=== PATIENT | male | born 1940 | race Two or more races ===

== ENCOUNTER 2023-03-20 06:52 | Inpatient (IN) | payer MEDICARE, MEDICAID ==
[~2023-03-20] VITALS: Ht 167.6 cm; Wt 95.8 kg
[2023-03-20] MEDS ORDERED: metroNIDAZOLE 500MG/100ML 100 ML IV ONE (07:00)
[2023-03-20] MEDS ORDERED: PIPERACILLIN-TAZOB 3.375GM 100 ML IV ONE (07:00)
[2023-03-20] MEDS ORDERED: PANTOPRAZOLE 40 MG/10 ML VIAL INJ IV ONE (07:00)
[2023-03-20] MEDS ORDERED: SODIUM CHLORIDE 0.9% 1,000 ML IV ONE ×4 (07:00→09:30)
[2023-03-20 07:07] VITALS: PULSE 84; RESP 25; O2SAT 96
[2023-03-20 07:21] LABS: Basophils # (auto) 0.1 10 ^3/uL (0-0.2); Eosinophils # (auto) 0 10 ^3/uL (0-0.8); Eosinophils % (auto) 0.2 % (0.0-7.0); Hematocrit 27.6 % (41.0-53.0); Hemoglobin 9.1 g/dL (13.5-17.5); Lymphocytes # (auto) 1.3 10 ^3/uL (0.4-5.4); Lymphocytes % (auto) 13.9 % (10.0-50.0); Mean Corpuscular Hemoglobin 28.4 pg (28.0-32.0); Mean Corpuscular Hgb Conc. 32.8 g/dL (32.0-36.0); Mean Corpuscular Volume 86.6 fL (80.0-100.0); Monocytes # (auto) 1.7 10 ^3/uL (0-1.3); Neutrophils # (auto) 6.3 10 ^3/uL (1.6-8.6); Neutrophils % (auto) 66.5 % (37.0-80.0); Nucleated Red Blood Cells % 0.2 %; Red Blood Cells 3.19 10^6/uL (4.5-5.90); Red Cell Distribution Width 20.6 % (11.8-14.3); White Blood Cell 9.4 10^3/uL (4.4-10.8)
[2023-03-20 07:24] LABS: Monocytes % (auto) 18.4 % (0.0-12.0)
[2023-03-20 07:30] VITALS: PULSE 84; RESP 20; O2SAT 97
[2023-03-20 07:36] LABS: INR 1.15 (0.9-1.15); Partial Thromboplastin Time 31.9 SEC (24.5-34.5)
[2023-03-20 07:39] LABS: Alanine Aminotransferase 24 U/L (7-40); Alkaline Phosphatase 56 U/L (46-116); Anion Gap 8 (5-15); Aspartate Aminotransferase 23 U/L (13-40); BUN/Creatinine Ratio 9.8 (10.0-20.0); Blood Urea Nitrogen 17 mg/dL (9-23); Calcium 7.4 mg/dL (8.7-10.4); Carbon Dioxide 26 mmol/L (20-30); Chloride 103 mmol/L (98-107); Glucose 109 mg/dL (74-106); Potassium 3.1 mmol/L (3.5-5.1); Sodium 137 mmol/L (136-145)
[2023-03-20 07:40] LABS: Bilirubin, Total 0.7 mg/dL (0.2-1.0); Total Protein 4.8 g/dL (5.7-8.2)
[2023-03-20] MEDS ORDERED: FUROSEMIDE 40 MG/4 ML VIAL IV ONE (09:45)
[2023-03-20] MEDS ORDERED: NOREPINEPHRINE 8 MG/250ML KIT 250 ML IV SCH (09:45)
[2023-03-20] MEDS: NOREPINEPHRINE 8 MG/250ML KIT 250 ML IV SCH ×2 (10:22→22:27)
[2023-03-20 12:43] LABS: Urine Bacteria FEW /hpf (None Seen); Urine Blood 3+ /uL (Negative); Urine Clarity Clear (Clear); Urine Color Yellow (Yellow); Urine Protein, UAD Negative (Negative); Urine Specific Gravity 1.011 (1.001-1.035); Urine Urobilinogen Normal (Negative); Urine WBC 5 /hpf (0 - 3); Urine pH 5.5 (5.0-8.0)
[2023-03-20] MEDS ORDERED: DOCUSATE SOD 100 MG CAP PO PRN (13:45)
[2023-03-20] MEDS: PIPERACILLIN-TAZOB 3.375GM 100 ML IV SCH ×2 (14:30→22:26)
[2023-03-20 14:48] LABS: INR 1.12 (0.9-1.15); Prothrombin Time 11.7 sec (9.3-11.8)
[2023-03-20] MEDS: POTASSIUM CHL 20MEQ/100ML 100 ML IV SCH ×2 (15:39→17:23)
[2023-03-20] MEDS ORDERED: LIDOCAINE 1% (LOCAL ANESTH.) PF 5ml SDV ID ONE (18:15)
[2023-03-20] MEDS: FUROSEMIDE 20 MG/2 ML VIAL IV SCH (18:22)
[2023-03-20 19:30] VITALS: PULSE 109; RESP 18; O2SAT 99
[2023-03-20] MEDS: SODIUM CHLOR 0.9% PF (SALINE LOCK) 10ML VIAL/SYR IV SCH (22:26)
[2023-03-21] VITALS (60 sets, daily range): BP systolic 84–162; BP diastolic 51–82; PULSE 80–117; RESP 9–26; TEMP 97.9–99.1; O2SAT 90–100
[2023-03-21] MEDS: FUROSEMIDE 20 MG/2 ML VIAL IV SCH ×2 (07:15→18:16)
[2023-03-21] MEDS: PIPERACILLIN-TAZOB 3.375GM 100 ML IV SCH ×3 (07:15→22:16)
[2023-03-21 08:46] LABS: Basophils # (auto) 0.1 10 ^3/uL (0-0.2); Basophils % (auto) 0.9 % (0.0-2.0); Eosinophils # (auto) 0.1 10 ^3/uL (0-0.8); Eosinophils % (auto) 1.1 % (0.0-7.0); Hematocrit 31.5 % (41.0-53.0); Hemoglobin 10.1 g/dL (13.5-17.5); Lymphocytes # (auto) 1.1 10 ^3/uL (0.4-5.4); Lymphocytes % (auto) 13.3 % (10.0-50.0); Mean Corpuscular Hemoglobin 27.8 pg (28.0-32.0); Mean Corpuscular Hgb Conc. 32.1 g/dL (32.0-36.0); Mean Corpuscular Volume 86.7 fL (80.0-100.0); Monocytes % (auto) 12.8 % (0.0-12.0); Neutrophils # (auto) 5.7 10 ^3/uL (1.6-8.6); Neutrophils % (auto) 71.9 % (37.0-80.0); Nucleated Red Blood Cells % 0.3 %; Red Blood Cells 3.64 10^6/uL (4.5-5.90); White Blood Cell 7.9 10^3/uL (4.4-10.8)
[2023-03-21 08:47] LABS: Alanine Aminotransferase 28 U/L (7-40); Albumin 3.2 g/dL (3.2-4.8); Alkaline Phosphatase 54 U/L (46-116); Anion Gap 8 (5-15); Aspartate Aminotransferase 35 U/L (13-40); BUN/Creatinine Ratio 9.3 (10.0-20.0); Bilirubin, Total 0.8 mg/dL (0.2-1.0); Blood Urea Nitrogen 10 mg/dL (9-23); Calcium 7.6 mg/dL (8.7-10.4); Carbon Dioxide 26 mmol/L (20-30); Chloride 105 mmol/L (98-107); Glucose 131 mg/dL (74-106); Sodium 139 mmol/L (136-145)
[2023-03-21 08:48] LABS: Red Cell Distribution Width 20.1 % (11.8-14.3); Total Protein 5.5 g/dL (5.7-8.2)
[2023-03-21 09:08] LABS: Potassium 2.8 mmol/L (3.5-5.1)
[2023-03-21] MEDS: PANTOPRAZOLE 40 MG/10 ML VIAL INJ IV SCH (10:44)
[2023-03-21] MEDS: SODIUM CHLOR 0.9% PF (SALINE LOCK) 10ML VIAL/SYR IV SCH ×2 (10:45→22:16)
[2023-03-21] MEDS: NOREPINEPHRINE 8 MG/250ML KIT 250 ML IV SCH (10:46)
[2023-03-21] MEDS: POTASSIUM CHL 20MEQ/100ML 100 ML IV SCH ×4 (10:55→18:17)
[2023-03-21] MEDS ORDERED: cefTRIAXone 1GM/50ML D5W 50 ML IV ONE (12:15)
[2023-03-21] MEDS: MAGNESIUM SULFATE 1GM/100ML 100 ML IV SCH ×2 (12:59→15:20)
[2023-03-21] MEDS: LOPERAMIDE HCL 2 MG CAP/TAB PO PRN (16:39)
[2023-03-22] VITALS (76 sets, daily range): BP systolic 78–127; BP diastolic 32–80; PULSE 82–115; RESP 8–32; TEMP 97.9–98.5; O2SAT 91–99
[2023-03-22 04:17] LABS: Basophils # (auto) 0.1 10 ^3/uL (0-0.2); Basophils % (auto) 1.2 % (0.0-2.0); Eosinophils # (auto) 0.2 10 ^3/uL (0-0.8); Eosinophils % (auto) 2.7 % (0.0-7.0); Hemoglobin 9.8 g/dL (13.5-17.5); Lymphocytes # (auto) 1.1 10 ^3/uL (0.4-5.4); Lymphocytes % (auto) 14.6 % (10.0-50.0); Mean Corpuscular Hgb Conc. 32.9 g/dL (32.0-36.0); Mean Corpuscular Volume 85.1 fL (80.0-100.0); Monocytes # (auto) 0.9 10 ^3/uL (0-1.3); Monocytes % (auto) 11.2 % (0.0-12.0); Neutrophils # (auto) 5.5 10 ^3/uL (1.6-8.6); Neutrophils % (auto) 70.3 % (37.0-80.0); Nucleated Red Blood Cells % 0.1 %; Red Blood Cells 3.52 10^6/uL (4.5-5.90); Red Cell Distribution Width 19.1 % (11.8-14.3); White Blood Cell 7.8 10^3/uL (4.4-10.8)
[2023-03-22 04:32] LABS: Alanine Aminotransferase 28 U/L (7-40); Albumin 3.1 g/dL (3.2-4.8); Alkaline Phosphatase 53 U/L (46-116); Anion Gap 7 (5-15); Aspartate Aminotransferase 29 U/L (13-40); BUN/Creatinine Ratio 9.3 (10.0-20.0); Blood Urea Nitrogen 9 mg/dL (9-23); Calcium 7.8 mg/dL (8.7-10.4); Carbon Dioxide 25 mmol/L (20-30); Chloride 105 mmol/L (98-107); Glucose 111 mg/dL (74-106); Potassium 3.2 mmol/L (3.5-5.1); Sodium 137 mmol/L (136-145)
[2023-03-22 04:33] LABS: Bilirubin, Total 0.8 mg/dL (0.2-1.0); Total Protein 5.4 g/dL (5.7-8.2)
[2023-03-22] MEDS: PIPERACILLIN-TAZOB 3.375GM 100 ML IV SCH ×2 (06:30→13:36)
[2023-03-22] MEDS: LOPERAMIDE HCL 2 MG CAP/TAB PO PRN (06:30)
[2023-03-22] MEDS: FUROSEMIDE 20 MG/2 ML VIAL IV SCH ×2 (06:31→18:16)
[2023-03-22] MEDS: ONDANSETRON HCL 4 MG/2 ML VIAL IV PRN (08:22)
[2023-03-22] MEDS: PANTOPRAZOLE 40 MG/10 ML VIAL INJ IV SCH (10:13)
[2023-03-22] MEDS: cefTRIAXone 1GM/50ML D5W 50 ML IV SCH (10:14)
[2023-03-22] MEDS: SODIUM CHLOR 0.9% PF (SALINE LOCK) 10ML VIAL/SYR IV SCH ×2 (10:15→21:39)
[2023-03-22] MEDS ORDERED: POTASSIUM CHL 20 Meq TABLET PO ONE (15:30)
[2023-03-22] MEDS: VANCOMYCIN HCL 125MG/5ML ORAL SOL PO SCH ×2 (18:17→21:38)
[2023-03-22] MEDS: NOREPINEPHRINE 8 MG/250ML KIT 250 ML IV SCH (19:53)
[2023-03-22] MEDS: metroNIDAZOLE 500MG/100ML 100 ML IV SCH (21:29)
[2023-03-22] MEDS: DOXYCYCLINE 100MG/250ML 250 ML IV SCH (22:47)
[2023-03-23] VITALS (76 sets, daily range): BP systolic 88–131; BP diastolic 47–80; PULSE 80–115; RESP 8–32; TEMP 97.6–98.7; O2SAT 88–98
[2023-03-23 04:48] LABS: Basophils # (auto) 0.1 10 ^3/uL (0-0.2); Basophils % (auto) 1.1 % (0.0-2.0); Eosinophils # (auto) 0.2 10 ^3/uL (0-0.8); Eosinophils % (auto) 4.5 % (0.0-7.0); Hematocrit 29.3 % (41.0-53.0); Hemoglobin 9.6 g/dL (13.5-17.5); Lymphocytes % (auto) 19.1 % (10.0-50.0); Mean Corpuscular Hemoglobin 27.8 pg (28.0-32.0); Mean Corpuscular Hgb Conc. 32.7 g/dL (32.0-36.0); Mean Corpuscular Volume 85.1 fL (80.0-100.0); Monocytes # (auto) 0.7 10 ^3/uL (0-1.3); Neutrophils # (auto) 3.1 10 ^3/uL (1.6-8.6); Neutrophils % (auto) 61.3 % (37.0-80.0); Nucleated Red Blood Cells % 0.2 %; Red Blood Cells 3.45 10^6/uL (4.5-5.90); Red Cell Distribution Width 19.5 % (11.8-14.3)
[2023-03-23 04:54] LABS: Alanine Aminotransferase 23 U/L (7-40); Albumin 3.1 g/dL (3.2-4.8); Alkaline Phosphatase 51 U/L (46-116); Anion Gap 5 (5-15); Aspartate Aminotransferase 24 U/L (13-40); BUN/Creatinine Ratio 8.4 (10.0-20.0); Bilirubin, Total 0.5 mg/dL (0.2-1.0); Blood Urea Nitrogen 8 mg/dL (9-23); Carbon Dioxide 28 mmol/L (20-30); Chloride 103 mmol/L (98-107); Glucose 123 mg/dL (74-106); Magnesium 1.6 mg/dL (1.6-2.6); Potassium 3.2 mmol/L (3.5-5.1); Sodium 136 mmol/L (136-145); Total Protein 5.4 g/dL (5.7-8.2)
[2023-03-23] MEDS: metroNIDAZOLE 500MG/100ML 100 ML IV SCH ×3 (05:39→21:45)
[2023-03-23] MEDS: VANCOMYCIN HCL 125MG/5ML ORAL SOL PO SCH ×4 (05:39→21:45)
[2023-03-23] MEDS: FUROSEMIDE 20 MG/2 ML VIAL IV SCH ×2 (06:27→17:11)
[2023-03-23] MEDS: cefTRIAXone 1GM/50ML D5W 50 ML IV SCH (07:43)
[2023-03-23] MEDS: PANTOPRAZOLE 40 MG/10 ML VIAL INJ IV SCH (09:03)
[2023-03-23] MEDS: MAGNESIUM SULFATE 1GM/100ML 100 ML IV SCH ×2 (09:03→10:20)
[2023-03-23] MEDS: SODIUM CHLOR 0.9% PF (SALINE LOCK) 10ML VIAL/SYR IV SCH ×2 (09:04→21:45)
[2023-03-23] MEDS: DOXYCYCLINE 100MG/250ML 250 ML IV SCH ×2 (09:06→21:45)
[2023-03-23] MEDS ORDERED: POTASSIUM CHL 20 Meq TABLET PO SCH (10:00)
[2023-03-23] MEDS: MIDODRINE HCL 10 MG TAB PO SCH ×2 (11:33→17:11)
[2023-03-24] VITALS (24 sets, daily range): BP systolic 92–141; BP diastolic 45–84; PULSE 73–87; RESP 10–25; TEMP 97.5–98.6; O2SAT 88–99
[2023-03-24] MEDS: VANCOMYCIN HCL 125MG/5ML ORAL SOL PO SCH ×4 (06:22→22:15)
[2023-03-24] MEDS: MIDODRINE HCL 10 MG TAB PO SCH ×3 (06:22→18:00)
[2023-03-24] MEDS: FUROSEMIDE 20 MG/2 ML VIAL IV SCH ×2 (06:25→17:59)
[2023-03-24] MEDS: metroNIDAZOLE 500MG/100ML 100 ML IV SCH ×3 (06:25→22:14)
[2023-03-24 06:54] LABS: Basophils # (auto) 0 10 ^3/uL (0-0.2); Basophils % (auto) 0.4 % (0.0-2.0); Eosinophils # (auto) 0.2 10 ^3/uL (0-0.8); Eosinophils % (auto) 3.8 % (0.0-7.0); Hematocrit 29.2 % (41.0-53.0); Hemoglobin 9.6 g/dL (13.5-17.5); Lymphocytes # (auto) 0.9 10 ^3/uL (0.4-5.4); Lymphocytes % (auto) 21.9 % (10.0-50.0); Mean Corpuscular Hgb Conc. 32.7 g/dL (32.0-36.0); Mean Corpuscular Volume 85.5 fL (80.0-100.0); Monocytes # (auto) 0.6 10 ^3/uL (0-1.3); Monocytes % (auto) 16.1 % (0.0-12.0); Neutrophils # (auto) 2.3 10 ^3/uL (1.6-8.6); Neutrophils % (auto) 57.8 % (37.0-80.0); Nucleated Red Blood Cells % 0.3 %; Red Blood Cells 3.42 10^6/uL (4.5-5.90); Red Cell Distribution Width 19.7 % (11.8-14.3)
[2023-03-24 06:59] LABS: Chloride 104 mmol/L (98-107); Potassium 3.1 mmol/L (3.5-5.1); Sodium 136 mmol/L (136-145)
[2023-03-24 07:00] LABS: Anion Gap 5 (5-15); Carbon Dioxide 27 mmol/L (20-30)
[2023-03-24 07:01] LABS: Calcium 8.1 mg/dL (8.7-10.4)
[2023-03-24 07:05] LABS: Glucose 97 mg/dL (74-106)
[2023-03-24 07:06] LABS: BUN/Creatinine Ratio 7.9 (10.0-20.0); Blood Urea Nitrogen 7 mg/dL (9-23); Magnesium 1.9 mg/dL (1.6-2.6)
[2023-03-24] MEDS: PANTOPRAZOLE 40 MG/10 ML VIAL INJ IV SCH (10:05)
[2023-03-24] MEDS: cefTRIAXone 1GM/50ML D5W 50 ML IV SCH (10:05)
[2023-03-24] MEDS: SODIUM CHLOR 0.9% PF (SALINE LOCK) 10ML VIAL/SYR IV SCH ×2 (10:06→22:14)
[2023-03-24] MEDS: POTASSIUM CHL 20 Meq TABLET PO SCH (10:09)
[2023-03-24] MEDS: NOREPINEPHRINE 8 MG/250ML KIT 250 ML IV SCH (10:15)
[2023-03-24] MEDS: DOXYCYCLINE 100MG/250ML 250 ML IV SCH ×2 (11:13→22:14)
[2023-03-24] MEDS: MAGNESIUM SULFATE 1GM/100ML 100 ML IV SCH ×2 (16:21→17:59)
[2023-03-24] MEDS: POTASSIUM CHL 20MEQ/100ML 100 ML IV SCH ×2 (16:21→18:21)
[2023-03-25] VITALS (7 sets, daily range): BP systolic 105–111; BP diastolic 60–65; PULSE 82–92; RESP 17–94; TEMP 97.2–98.3; O2SAT 94–95
[2023-03-25] MEDS: metroNIDAZOLE 500MG/100ML 100 ML IV SCH ×3 (05:52→22:28)
[2023-03-25] MEDS: MIDODRINE HCL 10 MG TAB PO SCH ×3 (05:53→18:44)
[2023-03-25] MEDS: FUROSEMIDE 20 MG/2 ML VIAL IV SCH ×2 (05:53→18:40)
[2023-03-25] MEDS: VANCOMYCIN HCL 125MG/5ML ORAL SOL PO SCH ×4 (05:53→22:28)
[2023-03-25] MEDS: cefTRIAXone 1GM/50ML D5W 50 ML IV SCH (09:40)
[2023-03-25] MEDS: POTASSIUM CHL 20 Meq TABLET PO SCH (09:40)
[2023-03-25] MEDS: PANTOPRAZOLE 40 MG/10 ML VIAL INJ IV SCH (09:40)
[2023-03-25] MEDS: SODIUM CHLOR 0.9% PF (SALINE LOCK) 10ML VIAL/SYR IV SCH ×2 (09:40→22:27)
[2023-03-25] MEDS: DOXYCYCLINE 100MG/250ML 250 ML IV SCH (11:11)
[2023-03-25] MEDS: DOXYCYCLINE 100 MG TAB/CAP PO SCH (22:27)
[2023-03-25] MEDS: ONDANSETRON HCL 4 MG/2 ML VIAL IV PRN (23:43)
[2023-03-26] VITALS (7 sets, daily range): BP systolic 104–120; BP diastolic 62–72; PULSE 84–98; RESP 16–19; TEMP 97.7–98.6; O2SAT 93–95
[2023-03-26] MEDS: MIDODRINE HCL 10 MG TAB PO SCH ×3 (06:20→18:14)
[2023-03-26] MEDS: FUROSEMIDE 20 MG/2 ML VIAL IV SCH ×2 (06:21→18:14)
[2023-03-26] MEDS: metroNIDAZOLE 500MG/100ML 100 ML IV SCH ×3 (06:21→21:16)
[2023-03-26] MEDS: VANCOMYCIN HCL 125MG/5ML ORAL SOL PO SCH ×4 (06:22→21:16)
[2023-03-26] MEDS: POTASSIUM CHL 20 Meq TABLET PO SCH (08:39)
[2023-03-26] MEDS: ONDANSETRON HCL 4 MG/2 ML VIAL IV PRN (08:39)
[2023-03-26] MEDS: cefTRIAXone 1GM/50ML D5W 50 ML IV SCH (08:39)
[2023-03-26] MEDS: LOPERAMIDE HCL 2 MG CAP/TAB PO PRN (08:46)
[2023-03-26] MEDS: PANTOPRAZOLE 40 MG/10 ML VIAL INJ IV SCH (09:50)
[2023-03-26] MEDS: DOXYCYCLINE 100 MG TAB/CAP PO SCH ×2 (09:50→21:14)
[2023-03-26] MEDS: SODIUM CHLOR 0.9% PF (SALINE LOCK) 10ML VIAL/SYR IV SCH ×2 (09:50→21:15)
[2023-03-27] VITALS (7 sets, daily range): BP systolic 100–141; BP diastolic 54–80; PULSE 90–104; RESP 17–20; TEMP 97.4–98.8; O2SAT 94–97
[2023-03-27] MEDS: metroNIDAZOLE 500MG/100ML 100 ML IV SCH ×2 (06:04→13:14)
[2023-03-27] MEDS: FUROSEMIDE 20 MG/2 ML VIAL IV SCH ×2 (06:04→16:39)
[2023-03-27] MEDS: MIDODRINE HCL 10 MG TAB PO SCH ×3 (06:04→18:28)
[2023-03-27] MEDS: VANCOMYCIN HCL 125MG/5ML ORAL SOL PO SCH ×4 (06:05→22:28)
[2023-03-27] MEDS: cefTRIAXone 1GM/50ML D5W 50 ML IV SCH (08:52)
[2023-03-27] MEDS: ONDANSETRON HCL 4 MG/2 ML VIAL IV PRN ×2 (08:52→13:12)
[2023-03-27] MEDS: DOXYCYCLINE 100 MG TAB/CAP PO SCH (08:53)
[2023-03-27] MEDS: PANTOPRAZOLE 40 MG/10 ML VIAL INJ IV SCH (08:53)
[2023-03-27] MEDS: SODIUM CHLOR 0.9% PF (SALINE LOCK) 10ML VIAL/SYR IV SCH ×2 (08:53→22:27)
[2023-03-27] MEDS: POTASSIUM CHL 20 Meq TABLET PO SCH (08:53)
[2023-03-27] MEDS ORDERED: METOPROLOL TARTRATE 50 MG TAB PO ONE (10:00)
[2023-03-27] MEDS: LOPERAMIDE HCL 2 MG CAP/TAB PO PRN (10:12)
[2023-03-27] MEDS ORDERED: SODIUM CHLORIDE 0.9% 500 ML IV ONE (10:30)
[2023-03-27] MEDS ORDERED: TPN PER PHARMACY 0 ML IV SCH (15:00)
[2023-03-27] MEDS ORDERED: ENOXAPARIN SOD 100 MG/1 ML SYRINGE SC ONE (16:00)
[2023-03-27 17:15] LABS: Alanine Aminotransferase 12 U/L (7-40); Alkaline Phosphatase 69 U/L (46-116); Anion Gap 7 (5-15); Aspartate Aminotransferase 13 U/L (13-40); BUN/Creatinine Ratio 8.9 (10.0-20.0); Blood Urea Nitrogen 12 mg/dL (9-23); Calcium 8.2 mg/dL (8.7-10.4); Carbon Dioxide 23 mmol/L (20-30); Chloride 109 mmol/L (98-107); Glucose 123 mg/dL (74-106); Magnesium 1.3 mg/dL (1.6-2.6); Potassium 3.7 mmol/L (3.5-5.1); Sodium 139 mmol/L (136-145)
[2023-03-27 17:16] LABS: Albumin 3.1 g/dL (3.2-4.8); Bilirubin, Total 0.5 mg/dL (0.2-1.0); Phosphorus 2.3 mg/dL (2.4-5.1); Total Protein 5.9 g/dL (5.7-8.2)
[2023-03-27] MEDS: MAGNESIUM SULFATE 1GM/100ML 100 ML IV SCH ×2 (18:28→19:28)
[2023-03-27] MEDS ORDERED: AMINO ACID INFUSION IN D10W 1,000 ML IV NR (20:00)
[2023-03-27] MEDS ORDERED: POTASSIUM PHOSPHATE 22 MEQ in SODIUM CHL 0.9% 100 ML IV ONE (20:00)
[2023-03-27] MEDS: InsuLIN REG 1unit/0.01ml Soln (100units/ml) SC SCH (22:57)
[2023-03-27] MEDS: ACCU-CHEK COMFORT CURVE STRIP VI SCH (22:57)
[2023-03-28] VITALS (7 sets, daily range): BP systolic 102–128; BP diastolic 59–75; PULSE 85–97; RESP 14–20; TEMP 97.8–98.6; O2SAT 94–97
[2023-03-28] MEDS ORDERED: DEXTROSE (50%) 50ML SYRG IV SCH
[2023-03-28] MEDS: ACCU-CHEK COMFORT CURVE STRIP VI SCH ×3 (06:33→16:53)
[2023-03-28] MEDS: VANCOMYCIN HCL 125MG/5ML ORAL SOL PO SCH ×4 (06:36→20:58)
[2023-03-28] MEDS: MIDODRINE HCL 10 MG TAB PO SCH ×3 (06:36→16:53)
[2023-03-28] MEDS: FUROSEMIDE 20 MG/2 ML VIAL IV SCH ×2 (06:36→16:52)
[2023-03-28] MEDS: metroNIDAZOLE 500MG/100ML 100 ML IV SCH ×4 (06:37→20:57)
[2023-03-28] MEDS: InsuLIN REG 1unit/0.01ml Soln (100units/ml) SC SCH ×3 (06:53→16:53)
[2023-03-28 06:54] LABS: Alanine Aminotransferase 10 U/L (7-40); Alkaline Phosphatase 66 U/L (46-116); Anion Gap 8 (5-15); Aspartate Aminotransferase 11 U/L (13-40); BUN/Creatinine Ratio 9.7 (10.0-20.0); Bilirubin, Total 0.5 mg/dL (0.2-1.0); Blood Urea Nitrogen 12 mg/dL (9-23); Calcium 8.3 mg/dL (8.7-10.4); Carbon Dioxide 22 mmol/L (20-30); Chloride 107 mmol/L (98-107); Glucose 134 mg/dL (74-106); Magnesium 1.8 mg/dL (1.6-2.6); Phosphorus 2.8 mg/dL (2.4-5.1); Potassium 3.3 mmol/L (3.5-5.1); Sodium 137 mmol/L (136-145)
[2023-03-28 06:55] LABS: Total Protein 5.8 g/dL (5.7-8.2)
[2023-03-28] MEDS: POTASSIUM CHL 20 Meq TABLET PO SCH (08:53)
[2023-03-28] MEDS: ENOXAPARIN SOD 100 MG/1 ML SYRINGE SC SCH ×2 (08:54→20:58)
[2023-03-28] MEDS: PANTOPRAZOLE 40 MG/10 ML VIAL INJ IV SCH (08:54)
[2023-03-28] MEDS: cefTRIAXone 1GM/50ML D5W 50 ML IV SCH (08:54)
[2023-03-28] MEDS: SODIUM CHLOR 0.9% PF (SALINE LOCK) 10ML VIAL/SYR IV SCH ×2 (09:07→20:57)
[2023-03-28] MEDS ORDERED: POTASSIUM EFFERVESENT TAB 25 MEQ GT ONE (10:45)
[2023-03-28] MEDS ORDERED: TPN PER PHARMACY IV NR ×9 (20:00)
[2023-03-29] VITALS (7 sets, daily range): BP systolic 100–111; BP diastolic 59–66; PULSE 82–102; RESP 14–20; TEMP 98.2–99.1; O2SAT 93–97
[2023-03-29] MEDS: ACCU-CHEK COMFORT CURVE STRIP VI SCH ×5 (00:30→23:51)
[2023-03-29] MEDS: InsuLIN REG 1unit/0.01ml Soln (100units/ml) SC SCH ×5 (00:30→23:50)
[2023-03-29] MEDS: metroNIDAZOLE 500MG/100ML 100 ML IV SCH ×3 (05:44→21:11)
[2023-03-29 06:31] LABS: Basophils # (auto) 0.1 10 ^3/uL (0-0.2); Basophils % (auto) 0.6 % (0.0-2.0); Eosinophils # (auto) 0 10 ^3/uL (0-0.8); Eosinophils % (auto) 0.3 % (0.0-7.0); Hematocrit 29.7 % (41.0-53.0); Hemoglobin 9.5 g/dL (13.5-17.5); Lymphocytes % (auto) 8.9 % (10.0-50.0); Mean Corpuscular Hemoglobin 27.5 pg (28.0-32.0); Mean Corpuscular Hgb Conc. 32.1 g/dL (32.0-36.0); Mean Corpuscular Volume 85.8 fL (80.0-100.0); Monocytes # (auto) 1.5 10 ^3/uL (0-1.3); Monocytes % (auto) 13.2 % (0.0-12.0); Neutrophils # (auto) 8.5 10 ^3/uL (1.6-8.6); Nucleated Red Blood Cells % 0.1 %; Red Blood Cells 3.46 10^6/uL (4.5-5.90)
[2023-03-29 06:33] LABS: Red Cell Distribution Width 20.2 % (11.8-14.3)
[2023-03-29] MEDS: FUROSEMIDE 20 MG/2 ML VIAL IV SCH ×2 (06:34→17:32)
[2023-03-29] MEDS: MIDODRINE HCL 10 MG TAB PO SCH ×3 (06:34→17:37)
[2023-03-29] MEDS: VANCOMYCIN HCL 125MG/5ML ORAL SOL PO SCH ×4 (06:37→21:04)
[2023-03-29 06:53] LABS: Albumin 2.9 g/dL (3.2-4.8); Alkaline Phosphatase 61 U/L (46-116); Anion Gap 7 (5-15); Aspartate Aminotransferase 10 U/L (13-40); BUN/Creatinine Ratio 15.8 (10.0-20.0); Blood Urea Nitrogen 16 mg/dL (9-23); Calcium 8.2 mg/dL (8.7-10.4); Carbon Dioxide 24 mmol/L (20-30); Chloride 105 mmol/L (98-107); Glucose 130 mg/dL (74-106); Magnesium 1.5 mg/dL (1.6-2.6); Potassium 3.3 mmol/L (3.5-5.1); Sodium 136 mmol/L (136-145)
[2023-03-29 06:54] LABS: Alanine Aminotransferase < 9 U/L (7-40); Bilirubin, Total 0.8 mg/dL (0.2-1.0); Phosphorus 2.5 mg/dL (2.4-5.1); Total Protein 5.5 g/dL (5.7-8.2)
[2023-03-29] MEDS: POTASSIUM CHL 20 Meq TABLET PO SCH (09:09)
[2023-03-29] MEDS: ENOXAPARIN SOD 100 MG/1 ML SYRINGE SC SCH ×2 (09:10→21:04)
[2023-03-29] MEDS: PANTOPRAZOLE 40 MG/10 ML VIAL INJ IV SCH (09:10)
[2023-03-29] MEDS: cefTRIAXone 1GM/50ML D5W 50 ML IV SCH (09:10)
[2023-03-29] MEDS: SODIUM CHLOR 0.9% PF (SALINE LOCK) 10ML VIAL/SYR IV SCH ×2 (09:10→21:03)
[2023-03-29] MEDS ORDERED: POTASSIUM PHOSPHATE 26.4 MEQ in SODIUM CHL 0.9% 100 ML IV ONE (12:00)
[2023-03-29] MEDS ORDERED: SODIUM ACETATE IV NR ×11 (20:00)
[2023-03-29] MEDS ORDERED: [UNRECOGNIZED DRUG - OTHER] IV NR ×11 (20:00)
[2023-03-29] MEDS ORDERED: FAT EMULSION IV NR ×11 (20:00)
[2023-03-29] MEDS ORDERED: SODIUM PHOSPHATES IV NR ×11 (20:00)
[2023-03-30] VITALS (7 sets, daily range): BP systolic 99–119; BP diastolic 53–67; PULSE 72–96; RESP 16–20; TEMP 98.2–99.3; O2SAT 93–96
[2023-03-30] MEDS: FUROSEMIDE 20 MG/2 ML VIAL IV SCH (06:00)
[2023-03-30] MEDS: ACCU-CHEK COMFORT CURVE STRIP VI SCH ×3 (06:04→17:09)
[2023-03-30 06:10] LABS: Albumin 2.8 g/dL (3.2-4.8); Alkaline Phosphatase 57 U/L (46-116); Anion Gap 6 (5-15); Aspartate Aminotransferase 12 U/L (13-40); BUN/Creatinine Ratio 16.7 (10.0-20.0); Bilirubin, Total 0.4 mg/dL (0.2-1.0); Blood Urea Nitrogen 15 mg/dL (9-23); Calcium 8.2 mg/dL (8.7-10.4); Carbon Dioxide 25 mmol/L (20-30); Chloride 105 mmol/L (98-107); Glucose 132 mg/dL (74-106); Magnesium 1.6 mg/dL (1.6-2.6); Phosphorus 3.3 mg/dL (2.4-5.1); Potassium 3.3 mmol/L (3.5-5.1); Sodium 136 mmol/L (136-145); Total Protein 5.2 g/dL (5.7-8.2)
[2023-03-30] MEDS: MIDODRINE HCL 10 MG TAB PO SCH ×3 (06:22→17:29)
[2023-03-30] MEDS: metroNIDAZOLE 500MG/100ML 100 ML IV SCH ×3 (06:22→21:07)
[2023-03-30] MEDS: VANCOMYCIN HCL 125MG/5ML ORAL SOL PO SCH ×2 (06:22→13:06)
[2023-03-30] MEDS: InsuLIN REG 1unit/0.01ml Soln (100units/ml) SC SCH ×3 (06:23→17:09)
[2023-03-30 06:35] LABS: Alanine Aminotransferase < 9 U/L (7-40)
[2023-03-30] MEDS: POTASSIUM CHL 20 Meq TABLET PO SCH (08:40)
[2023-03-30] MEDS: cefTRIAXone 1GM/50ML D5W 50 ML IV SCH (08:40)
[2023-03-30] MEDS: SODIUM CHLOR 0.9% PF (SALINE LOCK) 10ML VIAL/SYR IV SCH ×2 (08:41→21:07)
[2023-03-30] MEDS: ENOXAPARIN SOD 100 MG/1 ML SYRINGE SC SCH ×3 (08:41→22:00)
[2023-03-30] MEDS: MAGNESIUM SULFATE 1GM/100ML 100 ML IV SCH ×2 (13:05→14:46)
[2023-03-30] MEDS ORDERED: MAGNESIUM SULFATE 1GM/100ML 0 ML IV ONE (14:31)
[2023-03-30] MEDS ORDERED: POTASSIUM CHL 20 Meq TABLET PO ONE (15:00)
[2023-03-30] MEDS ORDERED: MAGNESIUM SULFATE 1GM/100ML 100 ML IV SCH (15:00)
[2023-03-30] MEDS ORDERED: TPN PER PHARMACY IV NR ×11 (20:00)
[2023-03-30] MEDS: PANTOPRAZOLE 40 MG/10 ML VIAL INJ IV SCH (21:07)
[2023-03-30] MEDS: DIFICID 200 MG PO SCH (21:08)
[2023-03-31] MEDS: ACCU-CHEK COMFORT CURVE STRIP VI SCH ×5 (00:41→23:54)
[2023-03-31 05:00] VITALS: BP 114/63; PULSE 86; RESP 16; TEMP 98; O2SAT 92
[2023-03-31] MEDS: MIDODRINE HCL 10 MG TAB PO SCH ×3 (05:28→17:21)
[2023-03-31] MEDS: metroNIDAZOLE 500MG/100ML 100 ML IV SCH (05:28)
[2023-03-31] MEDS: InsuLIN REG 1unit/0.01ml Soln (100units/ml) SC SCH ×5 (05:33→23:54)
[2023-03-31 06:04] LABS: Albumin 2.8 g/dL (3.2-4.8); Alkaline Phosphatase 56 U/L (46-116); Anion Gap 5 (5-15); Aspartate Aminotransferase 12 U/L (13-40); BUN/Creatinine Ratio 17.8 (10.0-20.0); Bilirubin, Total 0.4 mg/dL (0.2-1.0); Blood Urea Nitrogen 13 mg/dL (9-23); Carbon Dioxide 26 mmol/L (20-30); Chloride 105 mmol/L (98-107); Glucose 119 mg/dL (74-106); Magnesium 2.1 mg/dL (1.6-2.6); Phosphorus 2.7 mg/dL (2.4-5.1); Potassium 3.6 mmol/L (3.5-5.1); Sodium 136 mmol/L (136-145); Total Protein 5.4 g/dL (5.7-8.2)
[2023-03-31 06:19] LABS: Alanine Aminotransferase < 9 U/L (7-40)
[2023-03-31] MEDS: POTASSIUM CHL 20 Meq TABLET PO SCH (07:43)
[2023-03-31 08:00] VITALS: BP 115/61; PULSE 96; PULSE 99; RESP 16; RESP 20; TEMP 98.6; O2SAT 95
[2023-03-31] MEDS ORDERED: CHOLESTYRAMINE 4 GM POWDER GT SCH (11:00)
[2023-03-31] MEDS: PANTOPRAZOLE 40 MG/10 ML VIAL INJ IV SCH ×2 (11:11→21:51)
[2023-03-31] MEDS: SODIUM CHLOR 0.9% PF (SALINE LOCK) 10ML VIAL/SYR IV SCH ×2 (11:11→21:52)
[2023-03-31] MEDS: FUROSEMIDE 20 MG/2 ML VIAL IV SCH (11:11)
[2023-03-31] MEDS: DIFICID 200 MG PO SCH ×2 (11:12→21:52)
[2023-03-31] MEDS: FLORASTOR (S. BOULARDII) 250 MG CAP PO SCH (11:12)
[2023-03-31] MEDS: ENOXAPARIN SOD 100 MG/1 ML SYRINGE SC SCH (11:13)
[2023-03-31 13:00] VITALS: BP 112/60; PULSE 93; RESP 17; TEMP 98.6; O2SAT 94
[2023-03-31 16:59] VITALS: BP_SYST 108; BP_SYST 110; BP_DIAS 59; BP_DIAS 60; PULSE 89; PULSE 97; RESP 18; RESP 23; TEMP 98.3; TEMP 98.6; O2SAT 91; O2SAT 95
[2023-03-31 20:00] VITALS: PULSE 88
[2023-03-31] MEDS ORDERED: TPN PER PHARMACY IV NR ×10 (20:00)
[2023-03-31] MEDS: APIXABAN 5 MG TAB PO SCH (21:52)
[2023-03-31 22:00] VITALS: BP 112/58; PULSE 92; RESP 20; TEMP 99.1; O2SAT 97
[2023-04-01] VITALS (7 sets, daily range): BP systolic 110–130; BP diastolic 67–78; PULSE 78–101; RESP 16–20; TEMP 98–99.2; O2SAT 95–97
[2023-04-01 05:21] LABS: Basophils # (auto) 0.1 10 ^3/uL (0-0.2); Basophils % (auto) 1.3 % (0.0-2.0); Eosinophils # (auto) 0.1 10 ^3/uL (0-0.8); Hematocrit 28.8 % (41.0-53.0); Hemoglobin 9.4 g/dL (13.5-17.5); Lymphocytes # (auto) 0.9 10 ^3/uL (0.4-5.4); Lymphocytes % (auto) 11.4 % (10.0-50.0); Mean Corpuscular Hgb Conc. 32.7 g/dL (32.0-36.0); Mean Corpuscular Volume 85.5 fL (80.0-100.0); Monocytes # (auto) 1.1 10 ^3/uL (0-1.3); Monocytes % (auto) 14.1 % (0.0-12.0); Neutrophils # (auto) 5.7 10 ^3/uL (1.6-8.6); Neutrophils % (auto) 72.2 % (37.0-80.0); Nucleated Red Blood Cells % 0.1 %; Red Blood Cells 3.37 10^6/uL (4.5-5.90); White Blood Cell 7.8 10^3/uL (4.4-10.8)
[2023-04-01 05:28] LABS: Red Cell Distribution Width 20.4 % (11.8-14.3)
[2023-04-01 05:31] LABS: Albumin 2.7 g/dL (3.2-4.8); Alkaline Phosphatase 56 U/L (46-116); Anion Gap 4 (5-15); Aspartate Aminotransferase 15 U/L (13-40); BUN/Creatinine Ratio 20.5 (10.0-20.0); Blood Urea Nitrogen 15 mg/dL (9-23); Calcium 7.9 mg/dL (8.7-10.4); Carbon Dioxide 26 mmol/L (20-30); Chloride 107 mmol/L (98-107); Glucose 110 mg/dL (74-106); Potassium 3.6 mmol/L (3.5-5.1); Sodium 137 mmol/L (136-145)
[2023-04-01 05:32] LABS: Phosphorus 3.4 mg/dL (2.4-5.1)
[2023-04-01 05:33] LABS: Bilirubin, Total 0.4 mg/dL (0.2-1.0); Total Protein 5.2 g/dL (5.7-8.2)
[2023-04-01] MEDS: ACCU-CHEK COMFORT CURVE STRIP VI SCH ×3 (05:33→18:23)
[2023-04-01] MEDS: MIDODRINE HCL 10 MG TAB PO SCH ×3 (05:33→18:23)
[2023-04-01] MEDS: InsuLIN REG 1unit/0.01ml Soln (100units/ml) SC SCH ×3 (05:37→18:00)
[2023-04-01 05:38] LABS: Alanine Aminotransferase < 9 U/L (7-40)
[2023-04-01] MEDS: APIXABAN 5 MG TAB PO SCH ×2 (09:24→21:16)
[2023-04-01] MEDS: POTASSIUM CHL 20 Meq TABLET PO SCH (09:24)
[2023-04-01] MEDS: PANTOPRAZOLE 40 MG/10 ML VIAL INJ IV SCH ×2 (09:24→21:16)
[2023-04-01] MEDS: FLORASTOR (S. BOULARDII) 250 MG CAP PO SCH (09:24)
[2023-04-01] MEDS: DIFICID 200 MG PO SCH ×2 (09:25→21:16)
[2023-04-01] MEDS: FUROSEMIDE 20 MG/2 ML VIAL IV SCH (09:25)
[2023-04-01] MEDS: SODIUM CHLOR 0.9% PF (SALINE LOCK) 10ML VIAL/SYR IV SCH ×2 (09:26→21:16)
[2023-04-01] MEDS: CHOLESTYRAMINE 4 GM POWDER PO SCH (11:12)
[2023-04-01] MEDS ORDERED: TPN PER PHARMACY IV NR ×11 (20:00)
[2023-04-02] VITALS (7 sets, daily range): BP systolic 115–125; BP diastolic 67–77; PULSE 81–93; RESP 17–18; TEMP 97.9–98.9; O2SAT 91–95
[2023-04-02] MEDS: ACCU-CHEK COMFORT CURVE STRIP VI SCH ×2 (05:37)
[2023-04-02] MEDS: MIDODRINE HCL 10 MG TAB PO SCH ×3 (05:37→18:02)
[2023-04-02] MEDS: InsuLIN REG 1unit/0.01ml Soln (100units/ml) SC SCH ×2 (05:40)
[2023-04-02] MEDS: POTASSIUM CHL 20 Meq TABLET PO SCH (08:11)
[2023-04-02] MEDS: FUROSEMIDE 20 MG TAB PO SCH (09:55)
[2023-04-02] MEDS: PANTOPRAZOLE 40 MG/10 ML VIAL INJ IV SCH ×2 (09:55→22:00)
[2023-04-02] MEDS: FLORASTOR (S. BOULARDII) 250 MG CAP PO SCH (09:56)
[2023-04-02] MEDS: APIXABAN 5 MG TAB PO SCH ×2 (09:56→22:00)
[2023-04-02] MEDS: SODIUM CHLOR 0.9% PF (SALINE LOCK) 10ML VIAL/SYR IV SCH ×2 (10:04→22:00)
[2023-04-02] MEDS: DIFICID 200 MG PO SCH ×2 (10:04→22:00)
[2023-04-02] MEDS: CHOLESTYRAMINE 4 GM POWDER PO SCH (12:59)
[2023-04-03] VITALS (7 sets, daily range): BP systolic 107–127; BP diastolic 61–75; PULSE 81–98; RESP 17–20; TEMP 97.8–98.4; O2SAT 93–96
[2023-04-03 05:16] LABS: Basophils # (auto) 0.1 10 ^3/uL (0-0.2); Eosinophils # (auto) 0.1 10 ^3/uL (0-0.8); Eosinophils % (auto) 0.9 % (0.0-7.0); Hematocrit 31.2 % (41.0-53.0); Hemoglobin 10.1 g/dL (13.5-17.5); Lymphocytes # (auto) 0.9 10 ^3/uL (0.4-5.4); Lymphocytes % (auto) 11.8 % (10.0-50.0); Mean Corpuscular Hgb Conc. 32.5 g/dL (32.0-36.0); Mean Corpuscular Volume 86.1 fL (80.0-100.0); Monocytes % (auto) 14.6 % (0.0-12.0); Neutrophils # (auto) 5.1 10 ^3/uL (1.6-8.6); Neutrophils % (auto) 70.7 % (37.0-80.0); Nucleated Red Blood Cells % 0.1 %; Red Blood Cells 3.62 10^6/uL (4.5-5.90); White Blood Cell 7.2 10^3/uL (4.4-10.8)
[2023-04-03 05:29] LABS: Red Cell Distribution Width 20.3 % (11.8-14.3)
[2023-04-03 05:32] LABS: Anion Gap 7 (5-15); Calcium 8.4 mg/dL (8.7-10.4); Carbon Dioxide 25 mmol/L (20-30); Chloride 108 mmol/L (98-107); Potassium 4.2 mmol/L (3.5-5.1); Sodium 140 mmol/L (136-145)
[2023-04-03] MEDS: MIDODRINE HCL 10 MG TAB PO SCH ×3 (05:34→17:44)
[2023-04-03 05:38] LABS: BUN/Creatinine Ratio 13.8 (10.0-20.0); Blood Urea Nitrogen 11 mg/dL (9-23); Glucose 95 mg/dL (74-106)
[2023-04-03] MEDS: PANTOPRAZOLE 40 MG/10 ML VIAL INJ IV SCH ×2 (10:17→21:33)
[2023-04-03] MEDS: APIXABAN 5 MG TAB PO SCH ×2 (10:17→21:34)
[2023-04-03] MEDS: FUROSEMIDE 20 MG TAB PO SCH (10:18)
[2023-04-03] MEDS: FLORASTOR (S. BOULARDII) 250 MG CAP PO SCH (10:18)
[2023-04-03] MEDS: POTASSIUM CHL 20 Meq TABLET PO SCH (10:19)
[2023-04-03] MEDS: SODIUM CHLOR 0.9% PF (SALINE LOCK) 10ML VIAL/SYR IV SCH ×2 (10:19→21:35)
[2023-04-03] MEDS: DIFICID 200 MG PO SCH ×2 (10:19→21:34)
[2023-04-03] MEDS: CHOLESTYRAMINE 4 GM POWDER PO SCH (12:23)
[2023-04-04 05:00] VITALS: BP 109/65; PULSE 96; RESP 18; TEMP 97.6; O2SAT 96
[2023-04-04] MEDS: MIDODRINE HCL 10 MG TAB PO SCH ×2 (05:31→11:38)
[2023-04-04 08:00] VITALS: PULSE 84
[2023-04-04 09:24] VITALS: BP 119/80; PULSE 95; RESP 18; TEMP 98.2; O2SAT 94
[2023-04-04] MEDS ORDERED: LOP2C PO (09:59)
[2023-04-04] MEDS ORDERED: MIDO10TA10 PO (09:59)
[2023-04-04] MEDS ORDERED: SACC250C PO (09:59)
[2023-04-04] MEDS ORDERED: PANT40TA2 PO (09:59)
[2023-04-04] MEDS ORDERED: APIX5TAB PO (09:59)
[2023-04-04] MEDS ORDERED: FURO1TAB33 PO (09:59)
[2023-04-04] MEDS: FLORASTOR (S. BOULARDII) 250 MG CAP PO SCH (10:50)
[2023-04-04] MEDS: POTASSIUM CHL 20 Meq TABLET PO SCH (10:50)
[2023-04-04] MEDS: PANTOPRAZOLE 40 MG/10 ML VIAL INJ IV SCH (10:51)
[2023-04-04] MEDS: APIXABAN 5 MG TAB PO SCH (10:51)
[2023-04-04] MEDS: SODIUM CHLOR 0.9% PF (SALINE LOCK) 10ML VIAL/SYR IV SCH (10:53)
[2023-04-04] MEDS: DIFICID 200 MG PO SCH (10:53)
[2023-04-04] MEDS: FUROSEMIDE 20 MG TAB PO SCH (10:53)
[2023-04-04] MEDS: CHOLESTYRAMINE 4 GM POWDER PO SCH (11:38)
[2023-04-04 13:07] VITALS: BP 125/66; PULSE 92; RESP 19; TEMP 98; O2SAT 97
== END 2023-04-04 16:51 | disposition home health service (06) | DRG 871 ==
LOC: EDBD 06:52 → ER 06:52 → TELE 13:51 → ICU WEST 03-21 03:47 → TELE-EAST 03-24 21:45
PROVIDERS: ADMIT Nurse Practitioner Family; ATTEND Nurse Practitioner Acute Care
PROC: 02HV33Z Insertion of Infusion Device into Superior Vena Cava, Percutaneous Approach (ICD-10-PCS; principal; 2023-03-20)
PROC: B548ZZA Ultrasonography of Superior Vena Cava, Guidance (ICD-10-PCS; 2023-03-20)
PROC: 0DH63UZ Insertion of Feeding Device into Stomach, Percutaneous Approach (ICD-10-PCS; 2023-03-30)
PROC: 3E0G76Z Introduction of Nutritional Substance into Upper GI, Via Natural or Artificial Opening (ICD-10-PCS; 2023-03-30)
DX: A41.9 Sepsis, unspecified organism (principal); G93.41 Metabolic encephalopathy; J18.9 Pneumonia, unspecified organism; R65.21 Severe sepsis with septic shock; I50.33 Acute on chronic diastolic (congestive) heart failure; N17.9 Acute kidney failure, unspecified; D62 Acute posthemorrhagic anemia; A04.72 Enterocolitis due to Clostridium difficile, not specified as recurrent; E44.0 Moderate protein-calorie malnutrition; I82.401 Acute embolism and thrombosis of unspecified deep veins of right lower extremity; I48.20 Chronic atrial fibrillation, unspecified; I11.0 Hypertensive heart disease with heart failure; G62.9 Polyneuropathy, unspecified; E87.6 Hypokalemia; K21.9 Gastro-esophageal reflux disease without esophagitis; E66.9 Obesity, unspecified; N30.90 Cystitis, unspecified without hematuria; Z68.31 Body mass index [BMI] 31.0-31.9, adult; Z95.0 Presence of cardiac pacemaker; Z79.01 Long term (current) use of anticoagulants; Z79.899 Other long term (current) drug therapy; Z86.718 Personal history of other venous thrombosis and embolism
CPT/HCPCS: 36415; 36569; 70450; 71045; 74176; 80048; 80053; 81001; 82270; 82962; 83605; 83735; 83880; 84100; 84478; 84484; 85025; 85048; 85610; 85730; 86850; 86900; 86901; 87040; 87081; 87086; 87493; 93005; 93306; 93971; 96365; 97110; 97116; 97163; 97530; 99291; C9113; G0378; J0696; J1815; J2405; J2543; J3480; J3490